=== PATIENT | male | born 1945 | race Caucasian/White ===

== ENCOUNTER → 2016-11-04 | Outpatient (CLI) | payer BC, MEDICARE ==
[~2016-11-04] MED LIST: ASCO500T43 PO; ASPI-557 PO; CHOL400T11 PO; FISH1CAP2 PO; FOLI1TAB15 PO; LISI10TA7 PO; METO25TA6 PO; MULT-1198 PO; PRAV20TA4 PO; TICA60TA PO; VITA400C19 PO
--- NOTE | 2016-11-04 11:13 | DI ---
INDICATION: ITS.REASON: R05 COUGH PROCEDURE: CHEST 2-VIEWS UPRIGHT (PA \T\ LAT) Encounter: Initial COMPARISON: None FINDINGS: There is increased density overlying the lower thoracic spine seen on the lateral view suggesting a lower lobe infiltrate. This cannot be definitively localized on the PA view. The remaining lung rosario are clear. There is no pleural effusion or pneumothorax. Left single lead cardiac pacemaker defibrillator. The heart size, mediastinal contours and pulmonary vascularity are within normal limits. There is no significant skeletal abnormality. IMPRESSION: Suggestion of lower lobe pneumonia. .
== END ==
LOC: IMA 10:19
PROVIDERS: ATTEND Family Medicine
DX: R05 Cough (principal); R91.8 Other nonspecific abnormal finding of lung field

== ENCOUNTER → 2016-11-07 | Outpatient (CLI) | payer BC, MEDICARE ==
[2016-11-07 13:31] LABS: HCT - HEMATOCRIT 47.3 % (41-53); HGB - HEMOGLOBIN 16.5 GM/DL (13.5-17.5); MEAN CORPUSCULAR HGB 30.6 UUG (26-34); MEAN CORPUSCULAR HGB CONC(MCHC 34.9 GM/DL (31-37); MEAN CORPUSCULAR VOLUME 87.6 UM3 (80-100); MEAN PLATELET VOLUME 10.6 UM3 (9.4-12.4); WBC - WHITE BLOOD COUNT 9.2 T/MM3 (4.5-11.0)
[2016-11-07 13:40] LABS: ALBUMIN 3.9 G/DL (3.5-5.0); ALBUMIN/GLOBULIN RATIO 1.3 RATIO (1.1-2.2); ALKALINE PHOSPHATASE 74 U/L (38-126); ALT (SGPT) 47 U/L (21-72); ANION GAP 12 MEQ/L (5-15); AST (SGOT) 37 U/L (17-59); BUN/CREATININE RATIO 12 RATIO (6-26); CALCIUM 9.8 MG/DL (8.4-10.2); CHLORIDE 101 MEQ/L (98-107); CO2 - CARBON DIOXIDE 30 MEQ/L (22-30); GLOMERULAR FILTRATION RATE 73; GLUCOSE 86 MG/DL (75-110); POTASSIUM 4.5 MEQ/L (3.6-5); SODIUM 143 MEQ/L (134-144); TOTAL PROTEIN 6.9 G/DL (6.3-8.2)
[2016-11-07 13:50] LABS: EOSINOPHILS # (MANUAL) 0.3 T/MM3 (0-0.5); LYMPHOCYTES # (MANUAL) 1.5 T/MM3 (1-4.8); MONOCYTES # (MANUAL) 0.2 T/MM3 (0-0.8); NEUTROPHILS #(MANUAL)-ABSOLUTE 6.7 T/MM3 (1.8-7.7); REACTIVE LYMPHOCYTES # 0.6 T/MM3 (0-0); TOTAL CELLS COUNTED 100 %
--- NOTE | 2016-11-07 17:03 | DI ---
INDICATION: ITS.REASON: J18.9 PNEUMONIA PROCEDURE: CHEST 2-VIEWS UPRIGHT (PA \T\ LAT) Encounter: Initial COMPARISON: 11/04/2016 FINDINGS: The lungs are clear without evidence of focal abnormal airspace opacity. There is no pleural effusion or pneumothorax. There is a left subclavian single lead pacemaker in place. 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 The heart size, mediastinal contours and pulmonary vascularity are within normal limits. There is no significant skeletal abnormality. IMPRESSION: No acute cardiopulmonary disease. .
== END ==
LOC: IMA 13:03
PROVIDERS: ATTEND Family Medicine
DX: Z03.89 Encounter for observation for other suspected diseases and conditions ruled out (principal); M51.34 Other intervertebral disc degeneration, thoracic region; Z95.0 Presence of cardiac pacemaker
CPT/HCPCS: 36415; 80053; 85025